=== PATIENT | male | born 1980 | race African-American/Black ===

== ENCOUNTER 2022-06-10 22:11 | Emergency (ER) | payer OTHER ==
[2022-06-10 22:21] VITALS: BP 122/76; PULSE 69; RESP 20; TEMP 98.9; BMI 25.7
== END 2022-06-11 01:01 | disposition home or self-care (01) ==
LOC: JER 22:11
DX: M54.50 Low back pain, unspecified (principal); W10.8XXA Fall (on) (from) other stairs and steps, initial encounter
CPT/HCPCS: 71250-TC; 99283-25

== ENCOUNTER 2023-08-19 02:45 | Emergency (ER) | payer OTHER ==
[2023-08-19 03:03] VITALS: BP 150/95; PULSE 71; RESP 16; TEMP 98.7; BMI 24.4
[2023-08-19] MEDS: ACETAMINOPHEN 1000 MG/100 ML BAG IVPB ONE (03:20)
[2023-08-19] MEDS ORDERED: ACETAMINOPHEN 500 MG TABLET (FP) ONE (03:21)
[2023-08-19] MEDS: ACETAMINOPHEN 500 MG TABLET (FP) PO ONE (03:23)
== END 2023-08-19 04:21 | disposition home or self-care (01) ==
LOC: JER 02:45
DX: S93.401A Sprain of unspecified ligament of right ankle, initial encounter (principal); X50.1XXA Overexertion from prolonged static or awkward postures, initial encounter
CPT/HCPCS: 73610-TC-RT-FY; 73630-TC-RT-FY; 99283-25